=== PATIENT | female | born 1950 | race Caucasian/White ===

== ENCOUNTER 2023-07-03 10:22 | Emergency (ER) | payer MEDICARE ==
[2023-07-03] MEDS ORDERED: Ondansetron ODT 4 MG TAB ONE (10:52)
[2023-07-03] MEDS ORDERED: HYDROcodone/Acetaminophen 10/325 mg Tablet ONE (10:52)
== END 2023-07-03 12:00 | disposition home or self-care (01) ==
LOC: MADERS 10:22
DX: S09.90XA Unspecified injury of head, initial encounter (principal); G50.0 Trigeminal neuralgia; E11.9 Type 2 diabetes mellitus without complications; E78.5 Hyperlipidemia, unspecified; W19.XXXA Unspecified fall, initial encounter
CPT/HCPCS: 70450; Q0162